=== PATIENT | male | born 1980 | race African-American/Black ===

== ENCOUNTER → 2016-12-24 | Outpatient (CLI) | payer MEDICAID | LOC: FIMAGING 13:03 | PROVIDERS: ATTEND Family Medicine | DX: R05 Cough (principal) ==

== ENCOUNTER → 2017-08-01 | Outpatient (CLI) | payer MEDICAID ==
[~2017-08-01] MED LIST: IOPAMIDOL (ISOVUE-300) 100 ML BTL ONE
== END ==
LOC: FIMAGING 09:49
DX: M54.2 Cervicalgia (principal); R05 Cough
CPT/HCPCS: Q9967